=== PATIENT | male | born 1995 | race American Indian/Alaskan Native ===

== ENCOUNTER 2017-05-22 20:24 | Emergency (ER) | payer SELFPAY ==
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
[2017-05-22] MEDS ORDERED: traMADol 50 MG Tab PO ONE (21:21)
--- NOTE | 2017-05-23 08:27 | CR ---
Sacrum Coccyx Min 2V INDICATION: fall, injury FINDINGS: Negative sacrum and coccyx. No acute fracture.
--- NOTE | 2017-05-23 08:28 | CR ---
Lumbar Spine 2 or 3V INDICATION: fall injury FINDINGS: 5 lumbar type vertebral bodies. Vertebral body and disc space height is well-maintained. No acute fracture or malalignment.
== END 2017-05-22 22:24 | disposition home or self-care (01) ==
LOC: JP.ED 20:24
DX: S22.32XA Fracture of one rib, left side, initial encounter for closed fracture (principal); S30.0XXA Contusion of lower back and pelvis, initial encounter; Z88.0 Allergy status to penicillin; W00.1XXA Fall from stairs and steps due to ice and snow, initial encounter
CPT/HCPCS: 72100; 72220; 99284; A9270

== ENCOUNTER 2019-11-28 22:43 | Emergency (ER) | payer MEDICAID ==
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
== END 2019-11-29 00:04 | disposition home or self-care (01) ==
LOC: JP.ED 22:43
DX: S06.0X9A Concussion with loss of consciousness of unspecified duration, initial encounter (principal); Z88.0 Allergy status to penicillin; V86.59XA Driver of other special all-terrain or other off-road motor vehicle injured in nontraffic accident, initial encounter
CPT/HCPCS: 70450; 80305-QW; 81001; 99283; 99284-25